=== PATIENT | female | born 1980 | race Caucasian/White ===

== ENCOUNTER 2021-11-12 08:00 | Outpatient (RCR) | payer MEDICARE, MEDICAID, SELFPAY | END 2021-11-12 08:05 | disposition home or self-care (01) | LOC: PT 08:00 | PROVIDERS: PCP Pediatrics; Visit Provider Physical Medicine & Rehabilitation | DX: M47.816 Spondylosis without myelopathy or radiculopathy, lumbar region (principal) | CPT/HCPCS: 97010; 97012; 97014; 97035; 97110; 97163; G0283 ==

== ENCOUNTER → 2023-01-20 08:14 | Outpatient (CLI) | payer MEDICARE, MEDICAID, SELFPAY ==
--- NOTE | 2023-01-20 08:24 | XR_ITS ---
FINAL REPORT CLINICAL HISTORY: OBESITY, HIGH BP, UPCOMING SYLVIE BARIATRIC PROCEDURE FINDINGS: TWO-VIEW CHEST There is mild to moderate cardiomegaly. The mediastinum is normal. There are chronic changes in both lungs. There is no pneumothorax. IMPRESSION: No acute cardiopulmonary process. Reviewed, Interpreted and Dictated by Sudhakar Sánchez MD Transcribed by Ana Suárez Authenticated and . [facility]
[2023-01-20 09:09] LABS: Basophils # 0.1 K/mm3 (0-0.2); Basophils % 0.7 % (0.1-2.0); Eosinophils # 0.2 K/mm3 (0.0-0.4); Eosinophils % 2.4 % (0.1-12.0); Hematocrit 35.8 % (37.0-47.0); Hemoglobin 11.4 g/dL (12.2-16.2); Lymphocytes # 2.2 K/mm3 (0.7-4.5); Lymphocytes % 30.1 % (10-50); Mean Corpuscular HGB Conc 31.8 g/dL (31.8-35.4); Mean Corpuscular Hemoglobin 23.3 pg (27.0-31.2); Mean Corpuscular Volume 73.2 fl (81-99); Mean Platelet Volume 8.4 fl (7.4-10.4); Monocytes # 0.4 K/mm3 (0.1-1.0); Monocytes % 5.5 % (1.7-9.3); Neutrophils # 4.4 K/mm3 (1.8-7.8); Neutrophils % 61.3 % (37.0-80.0); Platelet Count 310 K/mm3 (142-424); Red Cell Distribution Width 17.4 % (11.5-17.5); White Blood Count 7.2 K/mm3 (4.8-10.8)
[2023-01-20 09:25] LABS: Chloride 96 mmol/L (98-107); Sodium 137 mmol/L (136-145)
[2023-01-20 09:26] LABS: Potassium 4.5 mmoL/L (3.5-5.1)
[2023-01-20 09:28] LABS: Alanine Aminotransferase 35 U/L (12-78); Albumin Level 3.6 g/dl (3.5-5.0); Albumin/Globulin Ratio 1.4 (1.1-1.8); Alkaline Phosphatase 156 U/L (38-126); Anion Gap 16.5 mEq/L (5-15); Aspartate Amino Transferase 36 U/L (14-36); Bilirubin,Total 0.5 mg/dl (0.2-1.3); Blood Urea Nitrogen 13 mg/dl (7-17); Calcium 8.6 mg/dl (8.4-10.2); Carbon Dioxide 29 mmol/L (22.0-30.0); Chol/HDL Ratio 5.3 (1-3.5); Cholesterol 143 mg/dl (140-200); Estimated Glomerular Filt Rate 110 ml/min (>60); GFR (African American) 133 ML/MIN (>60); Globulin 2.5 g/dL (1.3-3.2); Glucose 265 mg/dl (74-100); HDL Cholesterol 27 mg/dl (40-60); Iron 34 ug/dL (37-170); Total Protein,Serum 6.1 g/dl (6.3-8.2); Triglycerides 250 mg/dl (30-150); VLDL Cholesterol 50 mg/dL (0-40)
[2023-01-20 09:34] LABS: Hemoglobin A1C 7.9 % (4.0-6.0)
[2023-01-20 09:40] LABS: Direct LDL Cholesterol 93.99 mg/dL (100-129)
[2023-01-20 09:42] LABS: Intact Parathyroid Hormone 71.4 pg/mL (7.5-53.5)
[2023-01-20 09:43] LABS: Total Iron Binding Capacity 409 ug/dL (265-497)
[2023-01-20 09:45] LABS: 25-OH Vitamin D, Total 17.4 ng/mL (30-100)
[2023-01-20 10:00] LABS: Thyroid Stimulating Hormone 3.36 uIU/mL (0.465-4.68)
[2023-01-20 10:04] LABS: Ferritin 6.77 ng/ml (6.24-137)
[2023-01-20 10:38] LABS: Folate 5.56 ng/mL
[2023-01-24 13:33] LABS: Vitamin B1 104.2 nmol/L (66.5-200.0)
[2023-01-24 18:05] LABS: Vitamin A 25.1 ug/dL (20.1-62.0); Vitamin E Alpha Tocopherol 9.5 mg/L (7.0-25.1); Vitamin E Gamma Tocopherol 3.3 mg/L (0.5-5.5)
[2023-01-30 20:51] LABS: Methylmalonic Acid 211 nmol/L (0-378)
== END ==
PROVIDERS: PCP Pediatrics; Visit Provider Nurse Practitioner Family
DX: E11.9 Type 2 diabetes mellitus without complications (principal); E55.9 Vitamin D deficiency, unspecified; E66.9 Obesity, unspecified; Z68.42 Body mass index [BMI] 45.0-49.9, adult; Z79.4 Long term (current) use of insulin
CPT/HCPCS: 36415; 71046; 80053; 80061; 82306; 82728; 82746; 83036; 83540; 83550; 83921; 83970; 84425; 84443; 84446; 84590; 85025

== ENCOUNTER 2023-04-05 19:09 | Emergency (ER) | payer MEDICARE, MEDICAID, SELFPAY ==
[2023-04-05 19:22] VITALS: BP 141/85; PULSE 99; RESP 18; TEMP 36.7; O2SAT 96; BMI 51.7
--- NOTE | 2023-04-05 19:44 | HMH.EDGENADL ---
Discharge Plan Disposition Patient Disposition: Home, Self-Care Prescriptions Prescriptions: New cephalexin 500 mg capsule 500 mg PO QID 10 Days Qty: 40 0RF levofloxacin 750 mg tablet 750 mg PO DAILY 7 Days Qty: 7 0RF ciprofloxacin-dexamethasone [Ciprodex] 0.3-0.1 % drops,suspension 4 drp otic (ear) BID 7 Days Qty: 7.5 0RF No Action gabapentin 300 mg capsule 300 mg PO TID meloxicam 15 mg tablet 15 mg PO DAILY omeprazole 20 mg capsule,delayed release(DR/EC) 20 mg PO DAILY atorvastatin 20 mg tablet 20 mg PO DAILY clonazepam [Klonopin] 0.5 mg tablet 0.5 mg PO BID duloxetine 20 mg capsule,delayed release(DR/EC) 20 mg PO BID Linzess 145 mcg capsule 145 mcg PO DAILY triamcinolone acetonide 0.5 % cream 1 applic TOPICAL BID Qty: 15 0RF insulin glargine 100 UNIT/ML solution 80 unit SQ BID insulin aspart U-100 100 UNIT/ML solution 60 unit SQ TID PRN (Reason: X) Referrals Follow up/Referrals: Howard Duenas [Primary Care Provider] - See instructions Activity Restrictions/Add. Instructions Additional Instructions/Restrictions: You have an appointment here at [facility] in the specialty clinic with the ear nose and throat doctor and nurse practitioner this coming Thursday the at 1 PM. Return to the emergency department with any worsening symptoms the doctor you will be seeing is Dr. Hough. Clinical Impressions Clinical Impression: Otitis externa, Perichondritis of external ear, Cellulitis of face Discharge ED Provider: Johny Pineda General Adult HPI General Chief complaint: Ear Stated complaint: RT ear pain Time Seen by Provider: 04/05/23 19:29 Mode of Arrival: Ambulatory Source of Information: Patient Limitations: No Limitations Description of Symptoms (Recalled from ER Triage Doc. by RN): pt c/o R ear pain that has since radiated into her R sided face/teeth. pt also c/o facial edema and sore throat x2d. History of Present Illness HPI narrative: 43-year-old female with a history of diabetes here with right ear pain face pain and dental pain. States she had little bit of swelling in the right side of her face as well. The right ear hurts with any type of movement of it. No fevers or chills. No change in mental status or significant headache. No other respiratory symptoms or other complaints. Related Data Home Medications Medication Instructions Recorded Confirmed insulin aspart U-100 100 unit/mL 60 unit SQ TID PRN X 07/25/18 03/06/19 subcutaneous solution insulin glargine 100 unit/mL 80 unit SQ BID DM 07/25/18 03/06/19 subcutaneous solution atorvastatin 20 mg tablet 20 mg PO DAILY 03/06/19 03/06/19 clonazepam 0.5 mg tablet (Klonopin) 0.5 mg PO BID 03/06/19 03/06/19 duloxetine 20 mg capsule,delayed 20 mg PO BID 03/06/19 03/06/19 release gabapentin 300 mg capsule 300 mg PO TID 03/06/19 03/06/19 linaclotide 145 mcg capsule 145 mcg PO DAILY 03/06/19 03/06/19 (Linzess) meloxicam 15 mg tablet 15 mg PO DAILY 03/06/19 03/06/19 omeprazole 20 mg capsule,delayed 20 mg PO DAILY 03/06/19 03/06/19 release Previous Rx's Medication Instructions Recorded triamcinolone acetonide 0.5 % 1 applic topical BID rash #15 grams 03/06/19 topical cream cephalexin 500 mg capsule 500 mg PO QID 10 days #40 caps 04/05/23 ciprofloxacin 0.3 %-dexamethasone 4 drp otic (ear) BID 7 days #7.5 mL 04/05/23 0.1 % ear drops,suspension (Ciprodex) levofloxacin 750 mg tablet 750 mg PO DAILY 7 days #7 tabs 04/05/23 Allergies Allergy/AdvReac Type Severity Reaction Status Date / Time No Known Allergies Allergy Verified 04/05/23 19:28 [facility] Disclaimer: The information contained in this section may have been updated after the patient was seen, as this information can be updated by other users. Medical History (Updated 04/05/23 @ 19:43 by Johny Pineda MD) Diabetes Hyperlipidemia Hypertension S
[2023-04-05 19:51] VITALS: BP 129/61; PULSE 76; RESP 16; TEMP 36.7; O2SAT 98
== END 2023-04-05 20:01 | disposition home or self-care (01) ==
PROVIDERS: Emergency Provider Student in an Organized Health Care Education/Training Program; PCP Pediatrics
DX: L03.211 Cellulitis of face (principal); H62.41 Otitis externa in other diseases classified elsewhere, right ear; H61.011 Acute perichondritis of right external ear; E11.9 Type 2 diabetes mellitus without complications; E78.5 Hyperlipidemia, unspecified; I10 Essential (primary) hypertension
CPT/HCPCS: 99283

== ENCOUNTER → 2023-04-08 11:00 | Outpatient (CLI) | payer MEDICARE, MEDICAID, SELFPAY | PROVIDERS: Visit Provider Student in an Organized Health Care Education/Training Program | DX: H60.91 Unspecified otitis externa, right ear (principal); B96.5 Pseudomonas (aeruginosa) (mallei) (pseudomallei) as the cause of diseases classified elsewhere | CPT/HCPCS: 87070; 87077; 87186 ==

== ENCOUNTER 2024-10-08 17:19 | Emergency (ER) | payer MEDICARE, MEDICAID, SELFPAY ==
[2024-10-08 17:30] VITALS: BP 129/87; PULSE 76; RESP 18; TEMP 36.8; O2SAT 98; BMI 48.1
--- NOTE | 2024-10-08 17:39 | EXP.UTC ---
Discharge Plan Disposition Patient Disposition: Home, Self-Care Condition: Good Prescriptions Prescriptions: New doxycycline hyclate 100 mg capsule 100 mg PO BID 10 Days Qty: 20 0RF mupirocin 2 % ointment 1 applic topical TID Qty: 22 0RF No Action atorvastatin 80 mg tablet 80 mg PO DAILY Patient Comments: TAKE 1 TABLET BY MOUTH EVERY DAY duloxetine 60 mg capsule,delayed release(DR/EC) 60 mg PO DAILY Patient Comments: TAKE 1 CAPSULE BY MOUTH EVERY DAY duloxetine 30 mg capsule,delayed release(DR/EC) 30 mg PO DAILY Patient Comments: TAKE 1 CAPSULE BY MOUTH EVERY DAY gabapentin 600 mg tablet 600 mg PO Q8H Patient Comments: TAKE 1 TABLET BY MOUTH EVERY 8 HOURS benazepril 40 mg tablet 40 mg PO DAILY Patient Comments: TAKE 1 TABLET BY MOUTH EVERY DAY omeprazole 20 mg capsule,delayed release(DR/EC) 20 mg PO DAILY Humulin R U-500 (Conc) Kwikpen 500 unit/mL (3 mL) insulin pen 140 unit SQ BID Patient Comments: ADMINISTER 140 UNITS UNDER THE SKIN TWICE DAILY Referrals Follow up/Referrals: Howard Duenas [Primary Care Provider] - See instructions Activity Restrictions/Add. Instructions Additional Instructions/Restrictions: Take medication as prescribed. If no improvement in 72 hours, go to PCP. Clinical Impressions Clinical Impression: Staphylococcus aureus superficial folliculitis Instructions Patient Instructions: DI for Folliculitis Print Language Print Language: Greek Discharge ED Provider: Chika Bueno [facility] General Stated complaint: red,blisters on private area Time Seen by Provider: 10/08/24 17:39 History of Present Illness Provider Complaint: Pt reports that she has red blisters in her private area. She reports that she had this before and was informed that she had a staph infection there. Related Data Home Medications ?Medication ?Instructions ?Recorded ?Confirmed omeprazole 20 mg capsule,delayed 20 mg PO DAILY 03/06/19 10/08/24 release atorvastatin 80 mg tablet 80 mg PO DAILY 04/08/23 10/08/24 benazepril 40 mg tablet 40 mg PO DAILY 04/08/23 10/08/24 duloxetine 30 mg capsule,delayed 30 mg PO DAILY 04/08/23 10/08/24 release duloxetine 60 mg capsule,delayed 60 mg PO DAILY 04/08/23 10/08/24 release gabapentin 600 mg tablet 600 mg PO Q8H 04/08/23 10/08/24 insulin regular hum U-500 conc 500 140 unit SQ BID 10/08/24 10/08/24 unit/mL(3 mL) subcut pen (Humulin R U-500 (Conc) Insulin Kwikpen) Previous Rx's ?Medication ?Instructions ?Recorded doxycycline hyclate 100 mg capsule 100 mg PO BID 10 days #20 caps 10/08/24 mupirocin 2 % topical ointment 1 applic topical TID #22 grams 10/08/24 Allergies Allergy/AdvReac Type Severity Reaction Status Date / Time No Known Allergies Allergy Verified 04/08/23 13:16 [facility] Disclaimer: The information contained in this section may have been updated after the patient was seen, as this information can be updated by other users. Medical History Diabetes Hyperlipidemia Hypertension Social History Smoking Status: Current every day smoker tobacco type: cigarettes packs per day: 2 second hand exposure: No alcohol intake: never current occupational status: unemployed Travel in the last 8 weeks: None household members: family housing: house Have you lived/traveled outside US in past 30 days?: No Contact w/someone who lives/traveled outside US past 30 days?: No Exposure to someone with infectious disease in past 14 days?: No Do you have a fever (greater than 100.4 F or 38 C)?: No Have you tested positive for COVID-19: No Exposed to someone with COVID-19 in past 14 days?: No Do you have a sore throat?: No Do you have a cough?: No Do you have any weakness?: No Do you have any diarrhea?: No Are you experiencing any unusual bleeding?: No Do you have any muscle aches/pain?: No Do you have any abdominal pain?: No Are you experiencing loss of taste or smell?: No ROS Obtained: Yes All systems reviewed & no additional complaints except as documented Constitutional Constitutional: Reports system reviewed and no additional complaints, except as documented Eyes Eyes: Reports system reviewed and no additional complaints, except as documented ENT Ears, Nose, Mouth, and Throat: Reports system reviewed and no additional complaints, except as documented Cardiovascular Cardiovascular: Reports system reviewed and no additional complaints, except as documented Respiratory Respiratory: Reports system reviewed and no additional complaints, except as documented Gastrointestinal Gastrointestingal: Reports system reviewed and no additional complaints, except as documented Genitourinary Female Genitourinary: Reports system reviewed and no additional complaints, except as documented Musculoskeletal Musculoskeletal: Reports system reviewed and no additional complaints, except as documented Integumentary/Breasts Skin/Breast: Reports system reviewed and no additional complaints, except as documented, Reports redness and Reports furuncle Comments: labia Neurologic Neurologic: Reports system reviewed and no additional complaints, except as documented Endocrine Endocrine: Reports system reviewed and no additional complaints, except as documented Hematologic/Lymphatic Henatologic/Lymphatic: Reports system reviewed and no additional complaints, except as documented Allergic/Immunologic Allergic/Immunologic: Reports system reviewed and no additional complaints, except as documented Physical Exam General General appearance: alert and in no apparent distress Head Head exam: atraumatic and normocephalic Eye Eye exam: Present normal appearance ENT ENT exam: Present normal exam and normal oropharynx Neck Neck exam: Present normal inspection Chest Chest inspection: Present normal inspection and symmetric chest wall rise Respiratory Respiratory exam: Present normal lung sounds bilaterally Cardiovascular Cardiovascular exam: Present regular rate, normal rhythm and normal heart sounds Abdominal Exam Abdominal exam: Present soft External exam: Present tenderness, swelling and other (folliculitis on outer edge of right side labia. [place] sized hard area under site.) Extremities Exam Extremities exam: Present normal inspection Back Exam Back exam: Present normal inspection Neurological Exam Neurological exam: Present alert and oriented X3 Psychiatric Psychiatric exam: Present normal affect and normal mood Skin Skin exam: Present warm and dry Expanded Skin Exam Type of lesion: Present other (folliculitis) Distribution: genitals Description: Present tenderness and erythematous Lymphatic Lymphatic Findings: no adenopathy Medical Decision Making Medical Records Screening: Per USPSTF and CDC recommendations, given the prevalence of disease in our region, it is our hospital?s policy to screen for HIV and viral Hepatitis for all patients aged 18 and over and those with ongoing risk factors. Edmundo Inquiry Pt receiving controlled substance: No Edmundo was queried for this patient: No
[2024-10-08 18:07] VITALS: BP 129/87; PULSE 76; RESP 18; TEMP 36.8; O2SAT 98
== END 2024-10-08 18:09 | disposition home or self-care (01) ==
PROVIDERS: Emergency Provider Nurse Practitioner Family; PCP Pediatrics
DX: L73.9 Follicular disorder, unspecified (principal); L02.224 Furuncle of groin
CPT/HCPCS: 99212; G0381

== ENCOUNTER 2025-06-08 12:42 | Outpatient (CLI) | payer MEDICARE, MEDICAID, SELFPAY ==
--- NOTE | 2025-06-08 12:45 | MM_ITS ---
PROCEDURE INFORMATION: Exam: MG Bilateral Screening 3D Mammography Exam date and time: 06/08/2025 1:01 PM Age: 45 years old Clinical indication: Screening examination TECHNIQUE: Imaging protocol: Bilateral Screening tomosynthesis and 2D mammography including computer-aided detection (CAD) when performed. COMPARISON: 1. MG SEBAS SCRN MAMMO W/CAD BILAT 10/10/2021 12:46 PM 2. MG SEBAS SCRN MAMMO W/CAD BILAT 04/16/2020 9:46 AM FINDINGS: MAMMOGRAPHY: Breast composition: The breasts are almost entirely fatty. Mass: None. Architectural distortion: None. Calcifications: No suspicious calcifications. Asymmetric density: None. Skin thickening: None. Axillary adenopathy: None. IMPRESSION: No mammographic evidence of malignancy. Annual screening is recommended unless otherwise clinically indicated. ASSESSMENT: BI-RADS Category 1: Negative.
--- OUTSIDE RECORDS SUMMARY | 2025-06-08 12:45 | XMS_ITS | Encounter Summary ---
Author Organization Healthcare Address [address] [place] [address] Care Team Providers Care Composition Worker Name Role Phone Howard Duenas MD Primary Care Provider Encounter Details Date Type Department Care Team (Latest Contact Info) Description 12/12/2022 Community [facility] [address] [place] [address] Howard Duenas MD [address] [address] Lumbosacral root disorders, not elsewhere classified (Primary Dx); Chronic pain syndrome; Other intervertebral disc degeneration, lumbar region Social History Tobacco Use Types Packs/Day Years Used Date Smoking Tobacco: Every Day Alcohol Use Standard Drinks/Week Comments No 0 (1 standard drink = 0.6 oz pur e alcohol) Comments Unknown Sex and Gender Information Value Date Recorded Sex Assigned at Not on file Legal Sex Female 6:16 PM EDT Gender Identity Not on file Sexual Orientation Not on file documented as of this encounter Plan of Treatment Not on file documented as of this encounter Visit Diagnoses Diagnosis Lumbosacral root disorders, not elsewhere classified- Primary Chronic pain syndrome Other intervertebral disc degeneration, lumbar region documented in this encounter Care Teams Composition Worker Relationship Specialty Start Date End Date Howard Duenas MD [address] [address] PCP - General 02/01/21 documented as of this encounter
--- OUTSIDE RECORDS SUMMARY | 2025-06-08 12:45 | XMS_ITS | Clinical Summary ---
Author Organization Healthcare Address [address] [place] [address] Care Team Providers Care Shaft Mechanic Name Role Phone Howard Duenas MD Primary Care Provider Medications HumuLIN R U-500 KWIKPEN 500 UNIT/ML CONCENTRATED injection INJECT 140 UNITS UNDER THE SKIN BEFORE BREAKFAST AND BEFORE DINNER DIRECTED. MAXIMUM DAILY DOSE IS 400 24 mL Active Family History Medical History Relation Name Comments Cardiac disorder Daughter Diabetes Father Other cancer Father Diabetes Mother Hypertension Mother Thyroid disease Mother Diabetes Other Diabetes Sister 1 Thyroid disease Sister 2 Relation Name Status Comments Daughter Father Mother Other Sister 1 Sister 2 Social History Tobacco Use Types Packs/Day Years Used Date Smoking Tobacco: Every Day Alcohol Use Standard Drinks/Week Comments No 0 (1 standard drink = 0.6 oz pur e alcohol) Comments Unknown Sex and Gender Information Value Date Recorded Sex Assigned at Not on file Legal Sex Female 6:16 PM EDT Gender Identity Not on file Sexual Orientation Not on file Last Filed Vital Signs Vital Sign Reading Time Taken Comments Blood Pressure 114/79 12/27/2020 3:05 PM EDT Pulse 110 12/27/2020 3:05 PM EDT Temperature 36.7 C (98 F) 12/27/2020 3:05 PM EDT Respiratory Rate - - Oxygen Saturation - - Inhaled Oxygen Concentration - - Weight 112 kg (246 lb 1.9 oz) 12/27/2020 3:05 PM EDT Height 152.4 cm (5') 12/27/2020 3:05 PM EDT Body Mass Index 48.07 12/27/2020 3:05 PM EDT Plan of Treatment Health Maintenance Due Date Last Done Comments [facility]-Depression Screening 1980 [facility]-Infant/Child/Adol SDOH Screenings 1980 [facility]-Varicella Vaccines (1 of 2 - 13+ 2-dose series) 01/30/1993 [facility]- SDOH Screenings 01/30/1998 [facility]-Adult SDOH Screenings 01/30/1998 [facility]-DTaP,Tdap,and Td Vaccines (1 - Tdap) 01/30/1999 [facility]-Hepatitis B Vaccines (1 of 3 - 19+ 3-dose series) 01/30/1999 [facility]-Pap Smear 01/30/2001 HPV Vaccines (1 - 3-dose SCDM series) 01/30/2007 [facility]-Cervical Cancer Screening 01/30/2010 [facility]-HPV/Cotest 01/30/2010 CT Colonography 01/30/2025 Colonoscopy 01/30/2025 FIT-DNA 01/30/2025 FIT 01/30/2025 FOBT 01/30/2025 Sigmoidoscopy 01/30/2025 [facility]-Colorectal Cancer Screening 01/30/2025 CST-PLNQF-13 Vaccine (3 - 2024- season) 2025 05/11/2021, 04/13/2021 [facility]-Influenza Vaccine (#1) 05/22/202507/02, 06/15/2021, 06/17/2018, Additional history exists [facility]-Zoster Vaccines (1 of 2) 01/30/2030 [facility]-Diabetes: Hemoglobin A1C Discontinued 10/25/2020 [facility]-HIB Vaccines Aged Out No longer e ligible based on patient's age to complete this topic [facility]-Hepatitis A Vaccines Aged Out No longer eligible based on patient's age to complete this topic [facility]-IPV Vaccines Aged Out No longer e ligible based on patient's age to complete this topic [facility]-Pneumococcal Vaccine: Pediatrics (0 to 5 Years) and At-Risk Patients (6 to 49 Years) Aged Out No longer eligible based on patient's age to complete this topic [facility]-Rotavirus Vaccines Aged Out No lo nger eligible based on patient's age to complete this topic Procedures Procedure Name Priority Date/Time Associated Diagnosis Comments POCT GLYCOSYLATED HEMOGLOBIN (HGB A1C) Routine 10/25/2020 7:58 AM EST from Last 3 Months or Most Recently Relevant to Health Maintenance Results * TIGRE Hemoglobin A1C (10/25/2020 7:58 AM EST) POCT Hemoglobin A1C 10.6 [facility] DI[facility] [place] 10/25/2020 7:5 8 AM EST Narrative [facility] - 10/25/2020 7:58 AM EST Resulting Agency - [facility] [[facility] Diabetes [facility] Endocrinology [place]] us Historical Provider POINT OF CARE TEST ENTER/SHEELA T ORDERABLES Final Result [facility]ET[facility] [place] [address] [place] [address], from Last 3 Months or Most Recently Relevant to Health Maintenance [place] [address] [employer] Care Teams Shaft Mechanic Relationship Specialty Start Date End Date Howard Duenas MD [address] [address] PCP - General 02/01/21
--- OUTSIDE RECORDS SUMMARY | 2025-06-08 12:45 | XMS_ITS | Clinical Summary ---
Author Organization [facility] Address [address] [place] [address] Care Team Providers Care Dressmaker Helper Name Role Phone Howard Duenas MD Primary Care Provider [phone] Allergies No known active allergies Medications atorvastatin (LIPITOR) 80 MG tablet Take 1 tablet by mouth Daily. 2 Active benazepril (LOTENSIN) 20 MG tablet Take 1 tablet by mouth Daily. 2 Active clonazePAM (KlonoPIN) 1 MG tablet Take 1 tablet by mouth every night at bedtime. 2 Active DULoxetine (CYMBALTA) 60 MG capsule Take 1 capsule by mouth Daily. 2 Active esomeprazole (nexIUM) 40 MG capsule Take by mouth. 3 Active folic acid (FOLVITE) 1 MG tablet Take 4 tablets by mouth Daily. 3 Active gabapentin (NEURONTIN) 600 MG tablet Take 1 tablet by mouth Every 8 (Eight) Hours. 2 Active HYDROcodone-acet aminophen (NORCO) 5-325 MG per tablet Take 1 tablet by mouth Every 12 (Twelve) Hours As Needed. 2 Active HumuLIN R U-500 KwikPen 500 UNIT/ML solution pen-injector CONCENTRATED injection INJECT 140 UNITS SUBCUTANEOUS TWICE DAILY 2 Active BD ULTRA-FINE PEN NEEDLES 29G X 12.7MM misc USE TWICE DAILY WITH INSULIN INJECTIONS 2 Active Linzess 290 MCG capsule capsule Take 1 capsule by mouth Daily. 2 Active sulindac (CLINORIL) 150 MG tablet Take 1 tablet by mouth 2 (Two) Times a Day With Meals. 2 Active tiZANidine (ZANAFLEX) 4 MG tablet 2 Active Active Problems No known active problems Family History Medical History Relation Name Comments defects Daughter Nova Chd Heart disease Daughter Nova Cancer Father Nella Small cell Diabetes Father Nella Mental illness Father Nella Arthritis Maternal Grandmother Seda Diabetes Maternal Grandmother Seda Anxiety disorder Mother Britni COPD Mother Britni Depression Mother Britni Diabetes Mother Britni Hyperlipidemia Mother Britni Hypertension Mother Britni Mental illness Mother Britni Depression Sister 1 Lois Diabetes Sister 1 Lois Mental illness Sister 1 Lois Diabetes Sister 2 Crystal Miscarriages / Stillbirths Sister 2 Bindu Relation Name Status Comments Daughter Nova Father Nella Maternal Grandmother Seda Mother Britni Sister 1 Lois Sister 2 Bindu Social History Tobacco Use Types Packs/Day Years Used Date Smoking Tobacco: Every Day Cigarettes 1.5 20 Tobacco Cessation:Ready to Q uit: Not Asked; Counseling Given: Not Answered Alcohol Use Standard Drinks/Week Comments Never 0 (1 standard drink = 0.6 oz pur e alcohol) Abuse Screen Answer Date Recorded Unsafe at Home or Work/School Not on file Feels Threatened by Someone? Not on file 05/2023 Does Anyone Keep You from Co ntacting Others or Doint Things Outside the Home? Not on file 06/29/2023 Physical Sign of Abuse Present Not on file 1 Housing Stability Answer Date Recorded Current Living Arrangements Not on file 05/2023 Potentially Unsafe Housing Conditions Not on jason e 06/29/2023 Family and Community Support Answer Ankit e Recorded Help with Day-to-Day Activities Not on file 06/29/2023 Lonely or Isolated Not on file 06/29/2023 Employment Answer Date Recorded Do you want help finding or keeping work or a khushi b? Not on file 06/29/2023 Disabilities Answer Date Recorded Concentrating, Remembering, or Making Decisions Difficulty Not on file 06/29/2023 Doing Errands Independently Difficulty Not on fi le 06/29/2023 Education Answer Date Recorded Help with school or training? Not on file Preferred Language Not on file 06/29/2023 Comments Unknown Sex and Gender Information Value Date Recorded Sex Assigned at Not on file Legal Sex Female 12:37 PM EDT Gender Identity Not on file Sexual Orientation Not on file Last Filed Vital Signs Vital Sign Reading Time Taken Comments Blood Pressure 108/62 07/03/2022 12:51 PM EDT Pulse - - Temperature 36.7 C (98 F) 07/03/2022 12:51 PM EDT Respiratory Rate - - Oxygen Saturation - - Inhaled Oxygen Concentration - - Weight 117 kg (257 lb 12.8 oz) 07/03/2022 12:51 PM EDT Height 153 cm (5' 0.25 ) 07/03/2022 12:51 PM EDT Body Mass Index 49.93 07/03/2022 12:51 PM EDT Plan of Treatment Health Maintenance Due Date Last Done Comments Annual Gynecologic Pelvic and Breast Exam 1980 Pneumococcal Vaccine 0-49 (1 of 2 - PCV) 01/30/1999 TDAP/TD VACCINES (1 - Tdap) 01/30/1999 MAMMOGRAM 2020 ANNUAL WELLNESS VISIT 06/30/2022 HEPATITIS C SCREENING 06/30/2022 COLOGUARD 01/30/2025 COLON CANCER SCREENING 5 YEAR SIGMOIDOSCOPY 01/30/2025 COLONOSCOPY 01/30/2025 COLORECTAL CANCER SCREENING 01/30/2025 CT COLONOGRAPHY 01/30/2025 FECAL OCCULT BLOOD TEST 01/30/2025 FIT Testing (1 year) 01/30/2025 INFLUENZA VACCINE 04/21/2025 06/24/2013 Insurance [employer] MEDICARE A & B Care Teams Dressmaker Helper Relationship Specialty Start Date End Date Howard Duenas MD [address] [place] [address] PCP - General Internal Medicine 05/28/22
--- OUTSIDE RECORDS SUMMARY | 2025-06-08 12:45 | XMS_ITS | Encounter Summary ---
Author Organization Healthcare Address [address] [place] [address] Care Team Providers Care Wire Rope Sales Representative Name Role Phone Howard Duenas MD Primary Care Provider Reason for Visit * Reason Comments Med Refill Encounter Details Date Type Department Care Team (Late st Contact Info) Description 09/19/2021 Refill [place] [facility] Endocrinology [address] [place] [address] Asia Gan, CANAL EQUIPMENT MAINTENANCE SUPERVISOR [address] [facility] [address] [place] [address] Social History Tobacco Use Types Packs/Day Years [...] documented as of this encounter Visit Diagnoses Not on filedocumented in this encounter Care Teams Wire Rope Sales Representative Relationship Specialty Start Date End Date Howard Duenas MD [address] [address] PCP - General 02/01/21 documented as of this encounter
== END 2025-06-08 23:59 | disposition home or self-care (01) ==
LOC: RAD 12:43
PROVIDERS: PCP Pediatrics; Visit Provider Pediatrics
DX: Z12.31 Encounter for screening mammogram for malignant neoplasm of breast (principal)
CPT/HCPCS: 77063; 77067